=== PATIENT | female | born 1975 | race Caucasian/White ===

== ENCOUNTER 2018-06-08 23:10 | Emergency (ER) | payer SELFPAY ==
[~2018-06-08] VITALS: Ht 162.6 cm; Wt 69.8 kg
[2018-06-09] LABS: HEMATOCRIT 37.2 % (37.0-47.0); HEMOGLOBIN 12.6 g/dl (12.0-16.0); IMMATURE GRANULOCYTES 0.5 % (0.0-5.0); MEAN CELL VOLUME 96.4 fL CALC (80.0-100.0); MEAN CORPUSCULAR HGB 32.6 pG CALC (26.0-32.0); MEAN CORPUSCULAR HGB CONC 33.9 g/L CALC (32.0-36.0); NEUT# 9.81 thou/uL (2.00-7.15); RED BLOOD COUNT 3.86 mill/uL (4.20-5.60); RED CELL DISTRI WIDTH 14.3 % (11.5-15.5)
[2018-06-09 00:09] LABS: URINE BLOOD DIPSTICK MODERATE (NEGATIVE); URINE COLOR YELLOW; URINE GLUCOSE - DIPSTICK NEGATIVE (NEGATIVE); URINE KETONE >=80 mg/dL (NEGATIVE); URINE LEUK ESTERASE NEGATIVE (NEGATIVE); URINE NITRITE - DIPSTICK NEGATIVE (Negative); URINE PH 5.5 (4.5-8.0); URINE PROTEIN - DIPSTICK 30 mg/dL (NEG-TRACE); URINE SPECIFIC GRAVITY >=1.030; URINE UROBILINOGEN - DIPSTICK 0.2 E.U./dL (0.2)
[2018-06-09 00:12] LABS: URINE BILIRUBIN - DIPSTICK NEGATIVE (NEGATIVE); URINE CLARITY CLEAR
[2018-06-09 00:13] LABS: INFLUENZA A NONE DETECTED (NONE DETECT); INFLUENZA B NONE DETECTED (NONE DETECT)
[2018-06-09 00:17] LABS: ALBUMIN 4.2 g/dL (3.2-5.0); ALKALINE PHOSPHATASE 97 u/l (38-126); AMYLASE 47 u/l (30-110); ANION GAP 15 (6-22 (CALC)); BILIRUBIN, TOTAL 0.5 mg/dL (0.0-1.4); BUN 8 mg/dL (7-17); BUN/CREATININE RATIO 12 (12-20 (CALC)); CARBON DIOXIDE 25 mmol/l (22-30); CHLORIDE 102 mmol/l (95-108); CREATININE 0.7 mg/dL (0.5-1.0); GFR > 60 ML/MIN (>=60 (CALC)); GFR FOR AFR.AMER. > 60 ML/MIN (>=60 (CALC)); LIPASE 139 u/l (23-300); POTASSIUM 3.2 mmol/l (3.5-5.1); SGOT/AST 19 u/l (14-36); SGPT/ALT 27 u/l (9-52); SODIUM 138 mmol/l (137-146)
[2018-06-09 00:18] LABS: URINE SQUAMOUS EPITHELIAL CELL FEW EPI/hpf (0-FEW)
[2018-06-09 00:19] LABS: URINE BACTERIA MODERATE hpf; URINE HYALINE CAST RARE lpf (NONE-RARE); URINE MUCUS MODERATE hpf (NONE-FEW)
[2018-06-09] MEDS ORDERED: CIPROFLOXACN500 MG PO (02:12)
[2018-06-09] MEDS ORDERED: IMODIUM2 MG PO (02:14)
[2018-06-09 02:50] VITALS: BP 126/66
== END 2018-06-09 02:54 | disposition home or self-care (01) | DRG 392 ==
LOC: ED 23:10
PROVIDERS: Emergency Medicine
DX: R19.7 Diarrhea, unspecified (principal); R11.2 Nausea with vomiting, unspecified; N39.0 Urinary tract infection, site not specified
CPT/HCPCS: S0164

== ENCOUNTER 2020-08-10 19:36 | Observation (INO) | payer SELFPAY ==
[~2020-08-10] VITALS: Ht 167.6 cm; Wt 84.3 kg
[~2020-08-10 19:36] MED LIST: CIPROFLOXACN500 MG PO; IMODIUM2 MG PO
--- NOTE | 2020-08-10 19:42 | NUR ---
PT TO CT WITH NURSE PRIOR TO COMPLETION OF TRIAGE.
[2020-08-10] MEDS ORDERED: GABAPENTIN100 MG PO (20:11)
--- NOTE | 2020-08-10 20:12 | NUR ---
LAB AT BEDSIDE TO DRAW BLOOD. XRAY AT BEDSIDE.
[2020-08-10 20:18] LABS: HEMATOCRIT 36.6 % (37.0-47.0); HEMOGLOBIN 11.8 g/dl (12.0-16.0); IMMATURE GRANULOCYTES 0.4 % (0.0-5.0); MEAN CORPUSCULAR HGB 32.2 pG CALC (26.0-32.0); MEAN CORPUSCULAR HGB CONC 32.2 g/dL CAL (32.0-36.0); NEUT# 12.95 thou/uL (2.00-7.15); RED BLOOD COUNT 3.66 mill/uL (4.20-5.60); RED CELL DISTRI WIDTH 15.8 % (11.5-15.5)
--- NOTE | 2020-08-10 20:30 | NUR ---
STRAIGHT CATH PERFORMED WITH STERILE TECHNIQUE, URINE SAMPLE OBTAINED. PT TOLERATED WELL.
[2020-08-10 20:35] LABS: ALKALINE PHOSPHATASE 86 u/l (38-126); ANION GAP 18 (6-22 (CALC)); BUN 11 mg/dL (7-17); BUN/CREATININE RATIO 13 (12-20 (CALC)); CARBON DIOXIDE 20 mmol/l (22-30); CHLORIDE 102 mmol/l (95-108); CREATININE 0.8 mg/dL (0.5-1.0); ETHYL ALCOHOL 37 mg/dl (0-30); GFR > 60 ML/MIN (>=60 (CALC)); GFR FOR AFR.AMER. > 60 ML/MIN (>=60 (CALC)); POTASSIUM 3.3 mmol/l (3.5-5.1); SODIUM 136 mmol/l (137-146); TOTAL PROTEIN 6.8 g/dL (6.3-8.2)
[2020-08-10 20:37] LABS: BILIRUBIN, TOTAL 0.2 mg/dL (0.0-1.4); SGOT/AST 82 u/l (14-36)
[2020-08-10 20:46] LABS: MYOGLOBIN 27 ng/mL (0 - 62)
[2020-08-10 21:29] LABS: URINE BILIRUBIN - DIPSTICK NEGATIVE (NEGATIVE); URINE BLOOD DIPSTICK NEGATIVE (NEGATIVE); URINE COLOR YELLOW; URINE GLUCOSE - DIPSTICK 250 mg/dL (NEGATIVE); URINE KETONE NEGATIVE (NEGATIVE); URINE LEUK ESTERASE NEGATIVE (NEGATIVE); URINE NITRITE - DIPSTICK NEGATIVE (Negative); URINE PROTEIN - DIPSTICK TRACE mg/dL (NEG-TRACE); URINE SPECIFIC GRAVITY >=1.030; URINE UROBILINOGEN - DIPSTICK 0.2 E.U./dL (0.2)
--- NOTE | 2020-08-10 22:17 | NUR ---
PT ASSISTED ON TO BEDPAN
--- NOTE | 2020-08-10 22:29 | NUR ---
PT UNABLE TO URINATE ON BEDPAN. ASSISTED TO BSC--APPX 500 CC OF CLEAR YELLOW URINE PRODUCED. PLACED BACK INTO BED. SPECIALIST WOUND CARE IN PLACE. CALL LIGHT GIVEN.
--- NOTE | 2020-08-10 22:52 | NUR ---
IV MNT FLUID INITATED TO LEFT AC SITE. INFUSING WITHOUT DIFFICULTY. IO REMOVED FROM LEFT TIBIA. PT TOLERATED REMOVAL WELL---DRESSING PLACED TO SITE.
--- NOTE | 2020-08-10 23:02 | NUR ---
REPORT TO ELOINA NURSE/MED-SURG.
--- NOTE | 2020-08-10 23:15 | NUR ---
PT RECEIVED FROM ED TO ROOM 272. ARRIVES VIA STRETCHER ACCOMPANIED BY MYRA WALL. PT AMBULATORY TO BED. GAIT STEADY AND BALANCED. ORIENTED TO UNIT, ROOM, CALL MARTINS, LIGHTS, TV. ICE WATER PROVIDED. CALL MARTINS WITHIN REACH. AGREES TO CALL PRN.
--- NOTE | 2020-08-10 23:15 | NUR ---
Admission Note Report Given to: ELOINA Transported by: Wheelchair X Stretcher Transported with: X Nurse Transporter X Patent IV O2 X Tufting Creeler Location: ICU X [facility]2 PT TRANSPORTED TO [facility] VIA STRETCHER WITH TELE IN PLACE TO RM # [id number]
[2020-08-10 23:20] VITALS: BP 134/83
--- NOTE | 2020-08-10 23:25 | NUR ---
ASSESSMENT AND VITALS COMPLETED AT THIS TIME. RESPIRATIONS ARE STRONG, PT NO SIGNS OF DISTRESS, O2 SAT 99% ON RA. HEART RHYTHM IS NORMAL WITH TEELE IN PLACE. BOWEL SOUNDS ARE ACTIVE IN ALL QUADRANTS, LAST REPORTED BM 08/10/20. RADIAL AND PEDAL PULSES ARE STRONG WITH NORMAL CAPILLARY REFILL. IV SITE IS A 22G IN THE RAC IS PATENT AND APPEARS HEALTHY LOOKING. PT PRESENTS WITH MULTIPLE WOUNDS FROM A FALL DURING AN UNWITNESSED SEIZURE. PT HAS A CONTUSION ABOVE THE RIGHT EYE WITH A SKIN TEAR. PT HAS A PUNCTURE WOULD BELOW THE LEFT KNEE FROM AN EMS PLACEMENT OF AN INTRAOSSEOUS INFUSION. PT SCRATCHES/ABRASIONS ON HER ABDOMEN WHEN SHE FELL ON THE COUNTER IN HER KITCHEN. THE EMERGENCY DEPT REPORTS TO HER RIGHT FOREARM AND PALM OF HER RIGHT HAND. MATHEW WERE TREATED WITH NEOSPORIN AND WRAPPED WITH GAUZE. PT STATES THAT SHE IS IN PAIN BUT WOULD LIKE TO REMAIN MEDICATION FREE AT THIS TIME. NO ADDITIONAL NEEDS AT THIS TIME. ALL SAFETY PRECAUTIONS ARE IN PLACE WITH CALL LIGHT IN REACH. WILL CONTINUE TO MONITOR.
[2020-08-11] VITALS (7 sets, daily range): BP systolic 109–145; BP diastolic 54–93
--- NOTE | 2020-08-11 00:45 | NUR ---
PT LAYING IN BED WITH EYES CLOSED, APPEARS TO BE SLEEPING, IN NO APPARENT DISTRESS. RESPIRATIONS REGULAR AND UNLABORED. ITEMS REMAIN WITHIN REACH, CALL MARTINS REMAINS WITHIN REACH. BED REMAINS LOCKED AND IN LOW POSITION WITH BEDRAILS UP X2. WILL CONTINUE TO MONITOR.
--- NOTE | 2020-08-11 04:01 | NUR ---
PT RESTING IN BED, NO SIGNS OF DISTRESS NOTED, RESP EVEN AND UNLABORED. PT VOICES NO NEEDS OR COMPLAINTS AT THIS TIME. CALL LIGHT IN REACH,CONTINUE TO MONITOR.
[2020-08-11 04:41] LABS: HEMATOCRIT 36.4 % (37.0-47.0); HEMOGLOBIN 11.5 g/dl (12.0-16.0); IMMATURE GRANULOCYTES 0.3 % (0.0-5.0); MEAN CELL VOLUME 101.4 fL CALC (80.0-100.0); MEAN CORPUSCULAR HGB CONC 31.6 g/dL CAL (32.0-36.0); NEUT# 8.39 thou/uL (2.00-7.15); RED BLOOD COUNT 3.59 mill/uL (4.20-5.60); RED CELL DISTRI WIDTH 16.1 % (11.5-15.5)
[2020-08-11 05:03] LABS: BUN 8 mg/dL (7-17); BUN/CREATININE RATIO 14 (12-20 (CALC)); CARBON DIOXIDE 23 mmol/l (22-30); CHLORIDE 107 mmol/l (95-108); CREATININE 0.6 mg/dL (0.5-1.0); GFR > 60 ML/MIN (>=60 (CALC)); GFR FOR AFR.AMER. > 60 ML/MIN (>=60 (CALC)); SODIUM 136 mmol/l (137-146)
[2020-08-11 05:04] LABS: ANION GAP 11 (6-22 (CALC)); POTASSIUM 4.6 mmol/l (3.5-5.1)
--- NOTE | 2020-08-11 07:00 | NUR ---
SHIFT CHANGE REPORT, PT AWAKE AND ORIENTED RESTING IN BED, C/O PAIN TO RIGHT ARMAT THIS TIME, ICE APPLIED AND ARM ELEVATED, TO ADDRESS CONCERN WITH MD, CALL MARTINS IN REACH.
--- NOTE | 2020-08-11 12:00 | NUR ---
MEDICAL TEAM ROUNDED, ORDERS WRITTEN AND PAIN CONCERNS ADDRESSED, SPOUSE AT BEDSIDE.
--- NOTE | 2020-08-11 13:22 | NUR ---
DRESSING TO RIGHT ARM SATURATED AND REMOVED, NEW DRESSING OF TELFA APPLLIED AND SECURED WITH KELIX
--- NOTE | 2020-08-11 16:20 | NUR ---
RELAXING IN BED WATCHING TV, PAIN CONTROLLED WITH ANALGESICS, IVF INFUSING, CALL MARTINS IN REACH.
--- NOTE | 2020-08-11 20:04 | NUR ---
ASSESSMENT AND VITALS COMPLETED AT THIS TIME. RESPIRATIONS ARE EVEN AND UNLABORED AT REST, NO SIGNS OF DISTRESS, O2 SAT 98% ON RA. HEART RHYTHM WAS HEARD NORMAL,;SR ON TELEMENTRY. BOWEL SOUNDS ARE ACTIVE IN ALL QUADRANTS, LAST REPORTED BM 08/11/20. RADIAL AND PEDAL PULSES ARE STRONG WITH NORMAL CAPILLARY REFILL. PT IS USING THE BSC WITH 1 ASSIST. PT DENIES ANY PAIN OR ADDITIONAL NEEDS AT THIS TIME. ALL SAFETY PRECAUTIONS ARE IN PLACE WITH CALL LIGHT IN REACH. WILL CONTINUE TO MONITOR.
--- NOTE | 2020-08-12 01:33 | NUR ---
P/T C/O OF 07/21 PAIN. PRN PAIN MEDICATION GIVEN.
--- NOTE | 2020-08-12 01:53 | NUR ---
PT LAYING IN BED WITH EYES CLOSED, APPEARS TO BE SLEEPING, APPEARS COMFORTABLE AND IN NO DISTRESS. RESPIRATIONS REGULAR AND UNLABORED. ITEMS REMAIN WITHIN REACH, CALL MARTINS REMAINS WITHIN REACH. BED REMAINS LOCKED AND IN LOW POSITION WITH BEDRAILS UP X2. WILL CONTINUE TO MONITOR.
--- NOTE | 2020-08-12 04:04 | NUR ---
PT RESTING IN BED, PT STATES PAIN IS CONTROLLED. NO SIGNS OF DISTRESS NOTED, RESP EVEN AND UNLABORED. PT VOICES NO NEEDS OR COMPLAINTS AT THIS TIME. CALL LIGHT IN REACH, CONTINUE TO MONITOR.
[2020-08-12 04:05] VITALS: BP 127/73
[2020-08-12 07:42] VITALS: BP 128/86
--- NOTE | 2020-08-12 07:42 | NUR ---
RECEIEVED REPORT FROM MAE AU. PT SITTING IN RECLYINER UPON ENTERING ROOM. INTRODUCED SELF TO PT AND DISCUSSED POC. PT IS A/O X3 AND ABLE TO STATE NEEDS. ASSESSMENT AND VITALS COMPLETED. BP 128/86, HR 78, O2 100% ON ROOM AIR. RESPIRATIONS ARE EVEN AND UNLABORED WITH NO SIGNS OF DISTRESS NOTED. LUNG SOUNDS ARE CLEAR. HEART RHYTHM IS NORMAL WITH TELE IN PLACE. BOWEL SOUNDS ARE ACTIVE IN ALL QUADRANTS, LAST REPORTED BM 08/12/2020. RADIAL AND PEDAL PULSES ARE STRONG WITH NORMAL CAPILALRY REFILL. #22G IN LAC RUNNING WITH IVF PER ORDER, SITE APPEARS HEALTHY AND PATENT. PT PRESENTS WITH EDEMA AND 2 MATHEW SITES TO LEFT EYE. PT STATES "ITS STILL HARD TO OPEN UP. THEY ONLY THING IM WORRIED ABOUT IS THE SCARS." DRESSING TO RIGHT ARM IS SLIGHTLY SOILED, DRESSING TO BE CHANGED. MULTIPLE SMALL ABRASIONS TO LEFT LEG, BAND AIDES APPLIED. WRITTER SUGGESTING REPLACING, PT REFUSED. PT COMPLAINS OF 7/10 PAIN IN RIGHT ARM. PT TO BE MEDICATED PER EMAR. PT DENIES ANY ADDITIONAL NEEDS AT THIS TIME. ALL SAFTEY PRECAUTIONS ARE IN PLACE WIHT CALL LIGHT IN REACH. WILL CONTINUE TO MONITOR
--- NOTE | 2020-08-12 09:09 | NUR ---
DR NOVAK AT BEDSIDE DISCUSSING POC WITH PT
--- NOTE | 2020-08-12 09:46 | NUR ---
MORPHINE ADMINISTERED FOR PAIN RESULTING IN 04/20. DRESSING TO RIGHT ARM CHANGED. NONADHESIVE PADS, KRELEX WRAP AND LENA WRAPP APPLIED. DRESSING REAMINS CDI AT THIS TIME. PT TOLERATED WELL. ALL SAFETY PRECAUTIONS ARE I PLACE WIHT CALL LIGHT IN REACH. WILL CONTINUE TO MONITOR
[2020-08-12] MEDS ORDERED: PREDNISONE10 MG PO (10:11)
[2020-08-12] MEDS ORDERED: LORTAB5 PO ×2 (10:11→12:36)
[2020-08-12 10:55] VITALS: BP 137/75
--- NOTE | 2020-08-12 11:11 | NUR ---
PT EDUCATED ON DISCHARGE INTRUCTIONS AND NEW MEDICATIONS PREDISONE AND LORTAB. PT VERBAILZED UNDERSTANDING. IV REMOVED WITH CATHATER STILL INTACT. PT TOLERATED WELL.TELE MONITORING REMOVED, ER NOTIFIED. PT AWAITING FOR SPOUSE FOR NEW CLOTHES. ALL SAFETY PRECAUTIONS ARE IN PLACE WIHT CALL LIGHT IN REACH. WILL CONTINUE TO MONITOR
--- NOTE | 2020-08-12 11:26 | NUR ---
Discharge instructions given. Patient verbalizes understanding of same. Discharged in stable condition via Wheelchair to Home with family. All belongings sent with pt. PT DISCHARGED HOME VIA WHEELCHAIR IN STABLE CONDITION ACCOMPAINED BY JAMIA PAL AND SPOUSE. PT LEFT WITH ALL DISCHARGE INSTRUCTIONS AND BELONGINGS.
== END 2020-08-12 11:26 | disposition home or self-care (01) | DRG 312 ==
LOC: ED 19:36 → ED-I 20:07 → ED 21:56 → MS2 21:57
PROVIDERS: Emergency Medicine; ADMIT Internal Medicine; ATTEND Internal Medicine
DX: R55 Syncope and collapse (principal); T20.26XA Burn of second degree of forehead and cheek, initial encounter; T23.201A Burn of second degree of right hand, unspecified site, initial encounter; T22.211A Burn of second degree of right forearm, initial encounter; T26.01XA Burn of right eyelid and periocular area, initial encounter; X11.8XXA Contact with other hot tap-water, initial encounter; R73.9 Hyperglycemia, unspecified; M06.9 Rheumatoid arthritis, unspecified; Y93.G1 Activity, food preparation and clean up; Y92.000 Kitchen of unspecified non-institutional (private) residence as the place of occurrence of the external cause; Z20.828 Contact with and (suspected) exposure to other viral communicable diseases
CPT/HCPCS: G0378; J1650

== ENCOUNTER 2020-08-27 17:11 | Emergency (ER) | payer SELFPAY ==
[~2020-08-27] VITALS: Ht 167.6 cm; Wt 90.0 kg
[~2020-08-27 17:11] MED LIST changes: +GABAPENTIN100 MG PO; +LORTAB5 PO; +PREDNISONE10 MG PO
[2020-08-27] MEDS ORDERED: KEFLEX500 MG PO (17:59)
[2020-08-27 18:00] LABS: HEMATOCRIT 34.8 % (37.0-47.0); HEMOGLOBIN 10.7 g/dl (12.0-16.0); IMMATURE GRANULOCYTES 0.6 % (0.0-5.0); MEAN CELL VOLUME 100.3 fL CALC (80.0-100.0); MEAN CORPUSCULAR HGB 30.8 pG CALC (26.0-32.0); MEAN CORPUSCULAR HGB CONC 30.7 g/dL CAL (32.0-36.0); NEUT# 15.7 thou/uL (2.00-7.15); RED BLOOD COUNT 3.47 mill/uL (4.20-5.60); RED CELL DISTRI WIDTH 15.2 % (11.5-15.5)
[2020-08-27 18:02] LABS: URINE BILIRUBIN - DIPSTICK NEGATIVE (NEGATIVE); URINE BLOOD DIPSTICK NEGATIVE (NEGATIVE); URINE COLOR YELLOW; URINE GLUCOSE - DIPSTICK 500 mg/dL (NEGATIVE); URINE KETONE NEGATIVE (NEGATIVE); URINE LEUK ESTERASE NEGATIVE (NEGATIVE); URINE NITRITE - DIPSTICK NEGATIVE (Negative); URINE PROTEIN - DIPSTICK NEGATIVE (NEG-TRACE); URINE SPECIFIC GRAVITY >=1.030; URINE UROBILINOGEN - DIPSTICK 0.2 E.U./dL (0.2)
[2020-08-27 18:15] LABS: ALBUMIN 3.7 g/dL (3.2-5.0); ALKALINE PHOSPHATASE 80 u/l (38-126); ANION GAP 14 (6-22 (CALC)); BUN 13 mg/dL (7-17); BUN/CREATININE RATIO 15 (12-20 (CALC)); CARBON DIOXIDE 24 mmol/l (22-30); CHLORIDE 102 mmol/l (95-108); CREATININE 0.9 mg/dL (0.5-1.0); ETHYL ALCOHOL 19 mg/dl (0-30); GFR > 60 ML/MIN (>=60 (CALC)); GFR FOR AFR.AMER. > 60 ML/MIN (>=60 (CALC)); MAGNESIUM 1.8 mg/dL (1.6-2.3); POTASSIUM 3.8 mmol/l (3.5-5.1); SGOT/AST 52 u/l (14-36); SODIUM 136 mmol/l (137-146); TOTAL PROTEIN 6.2 g/dL (6.3-8.2)
[2020-08-27 18:16] LABS: BILIRUBIN, TOTAL 0.1 mg/dL (0.0-1.4)
[2020-08-27 21:33] LABS: ALBUMIN 3.4 g/dL (3.2-5.0); ALKALINE PHOSPHATASE 88 u/l (38-126); ANION GAP 10 (6-22 (CALC)); BUN 13 mg/dL (7-17); BUN/CREATININE RATIO 20 (12-20 (CALC)); CARBON DIOXIDE 27 mmol/l (22-30); CHLORIDE 102 mmol/l (95-108); CREATININE 0.7 mg/dL (0.5-1.0); GFR > 60 ML/MIN (>=60 (CALC)); GFR FOR AFR.AMER. > 60 ML/MIN (>=60 (CALC)); POTASSIUM 4.1 mmol/l (3.5-5.1); SGOT/AST 41 u/l (14-36); SODIUM 135 mmol/l (137-146); TOTAL PROTEIN 5.9 g/dL (6.3-8.2)
[2020-08-27 21:40] LABS: BILIRUBIN, TOTAL 0.2 mg/dL (0.0-1.4)
[2020-08-27 21:50] VITALS: BP 135/68
== END 2020-08-27 22:00 | disposition home or self-care (01) | DRG 918 ==
LOC: ED 17:11
DX: T40.2X1A Poisoning by other opioids, accidental (unintentional), initial encounter (principal); E11.9 Type 2 diabetes mellitus without complications; M06.9 Rheumatoid arthritis, unspecified

== ENCOUNTER 2021-03-11 13:45 | Emergency (ER) | payer SELFPAY ==
[~2021-03-11] VITALS: Ht 167.6 cm; Wt 85.0 kg
[~2021-03-11 13:45] MED LIST changes: +KEFLEX500 MG PO
[2021-03-11 14:54] LABS: HEMATOCRIT 35.8 % (37.0-47.0); HEMOGLOBIN 11.3 g/dl (12.0-16.0); IMMATURE GRANULOCYTES 0.3 % (0.0-5.0); MEAN CORPUSCULAR HGB 29.7 pG CALC (26.0-32.0); MEAN CORPUSCULAR HGB CONC 31.6 g/dL CAL (32.0-36.0); NEUT# 4.87 thou/uL (2.00-7.15); RED BLOOD COUNT 3.81 mill/uL (4.20-5.60)
[2021-03-11 15:22] LABS: URINE BILIRUBIN - DIPSTICK NEGATIVE (NEGATIVE); URINE BLOOD DIPSTICK NEGATIVE (NEGATIVE); URINE COLOR YELLOW; URINE GLUCOSE - DIPSTICK 100 mg/dL (NEGATIVE); URINE KETONE NEGATIVE (NEGATIVE); URINE LEUK ESTERASE NEGATIVE (NEGATIVE); URINE PROTEIN - DIPSTICK NEGATIVE (NEG-TRACE); URINE UROBILINOGEN - DIPSTICK 0.2 E.U./dL (0.2)
[2021-03-11 15:25] LABS: URINE NITRITE - DIPSTICK NEGATIVE (Negative)
[2021-03-11 15:31] LABS: ALBUMIN 3.5 g/dL (3.2-5.0); ALKALINE PHOSPHATASE 83 u/l (38-126); ANION GAP 9 (6-22 (CALC)); BUN 5 mg/dL (7-17); BUN/CREATININE RATIO 9 (12-20 (CALC)); CARBON DIOXIDE 26 mmol/l (22-30); CHLORIDE 104 mmol/l (95-108); CREATININE 0.6 mg/dL (0.5-1.0); ETHYL ALCOHOL 0 mg/dl (0-30); GFR > 60 ML/MIN (>=60 (CALC)); GFR FOR AFR.AMER. > 60 ML/MIN (>=60 (CALC)); MAGNESIUM 1.7 mg/dL (1.6-2.3); POTASSIUM 3.7 mmol/l (3.5-5.1); SGOT/AST 29 u/l (14-36); SODIUM 136 mmol/l (137-146); TOTAL PROTEIN 6.2 g/dL (6.3-8.2)
[2021-03-11 15:37] LABS: BILIRUBIN, TOTAL 0.1 mg/dL (0.0-1.4)
[2021-03-11 17:24] VITALS: BP 115/92
== END 2021-03-11 17:33 | disposition home or self-care (01) | DRG 918 ==
LOC: ED 13:45
PROVIDERS: Emergency Medicine
DX: T42.4X1A Poisoning by benzodiazepines, accidental (unintentional), initial encounter (principal); E11.9 Type 2 diabetes mellitus without complications; M06.9 Rheumatoid arthritis, unspecified

== ENCOUNTER 2021-10-23 08:18 | Emergency (ER) | payer SELFPAY ==
[~2021-10-23] VITALS: Ht 167.6 cm; Wt 68.0 kg
[2021-10-23 09:30] LABS: URINE BILIRUBIN - DIPSTICK NEGATIVE (NEGATIVE); URINE BLOOD DIPSTICK NEGATIVE (NEGATIVE); URINE COLOR YELLOW; URINE GLUCOSE - DIPSTICK NEGATIVE (NEGATIVE); URINE KETONE NEGATIVE (NEGATIVE); URINE LEUK ESTERASE NEGATIVE (NEGATIVE); URINE PROTEIN - DIPSTICK NEGATIVE (NEG-TRACE); URINE UROBILINOGEN - DIPSTICK 0.2 E.U./dL (0.2)
[2021-10-23 09:32] LABS: HEMATOCRIT 38.6 % (37.0-47.0); HEMOGLOBIN 13.1 g/dl (12.0-16.0); IMMATURE GRANULOCYTES 0.1 % (0.0-5.0); MEAN CELL VOLUME 96.7 fL CALC (80.0-100.0); MEAN CORPUSCULAR HGB 32.8 pG CALC (26.0-32.0); MEAN CORPUSCULAR HGB CONC 33.9 g/dL CAL (32.0-36.0); NEUT# 6.95 thou/uL (2.00-7.15); RED BLOOD COUNT 3.99 mill/uL (4.20-5.60); RED CELL DISTRI WIDTH 17.1 % (11.5-15.5)
[2021-10-23 09:32] LABS: URINE NITRITE - DIPSTICK NEGATIVE (Negative)
[2021-10-23 09:48] LABS: ALKALINE PHOSPHATASE 117 u/l (38-126); ANION GAP 14 (6-22 (CALC)); BUN 5 mg/dL (7-17); BUN/CREATININE RATIO 8 (12-20 (CALC)); CARBON DIOXIDE 28 mmol/l (22-30); CHLORIDE 100 mmol/l (95-108); CREATININE 0.7 mg/dL (0.5-1.0); GFR > 60 ML/MIN (>=60 (CALC)); GFR FOR AFR.AMER. > 60 ML/MIN (>=60 (CALC)); POTASSIUM 4.3 mmol/l (3.5-5.1); SODIUM 137 mmol/l (137-146)
[2021-10-23 09:54] LABS: ALBUMIN 4.5 g/dL (3.2-5.0); BILIRUBIN, TOTAL 0.8 mg/dL (0.0-1.4); SGOT/AST 101 u/l (14-36); TOTAL PROTEIN 7.8 g/dL (6.3-8.2)
[2021-10-23 10:00] LABS: MYOGLOBIN 27 ng/mL (0 - 62)
[2021-10-23] MEDS ORDERED: ATIVAN1 M1 PO (10:19)
[2021-10-23] MEDS ORDERED: ONDANSETRON4 MG PO (10:19)
[2021-10-23 10:22] VITALS: BP 146/68
== END 2021-10-23 10:40 | disposition home or self-care (01) | DRG 897 ==
LOC: ED 08:18
PROVIDERS: Emergency Medicine
DX: F19.139 Other psychoactive substance abuse with withdrawal, unspecified (principal); E11.9 Type 2 diabetes mellitus without complications; M06.9 Rheumatoid arthritis, unspecified

== ENCOUNTER 2022-01-09 18:48 | Emergency (ER) | payer SELFPAY ==
[~2022-01-09] VITALS: Ht 167.6 cm; Wt 70.0 kg
[~2022-01-09 18:48] MED LIST changes: +ATIVAN1 M1 PO; +ONDANSETRON4 MG PO
[2022-01-09 19:39] VITALS: BP 137/104
[2022-01-09 19:40] VITALS: BP 149/100
[2022-01-09 20:00] VITALS: BP 141/90
[2022-01-09 20:30] VITALS: BP 134/89; BP 141/90
== END 2022-01-09 20:37 | disposition home or self-care (01) | DRG 125 ==
LOC: ED 18:48
PROC: 0HQ1XZZ Repair Face Skin, External Approach (ICD-10-PCS; principal; 2022-01-09)
DX: S01.112A Laceration without foreign body of left eyelid and periocular area, initial encounter (principal); E11.9 Type 2 diabetes mellitus without complications; M06.9 Rheumatoid arthritis, unspecified; W22.8XXA Striking against or struck by other objects, initial encounter; Y93.I9 Activity, other involving external motion

== ENCOUNTER 2024-05-01 15:01 | Emergency (ER) | payer OTHER ==
[~2024-05-01] VITALS: Ht 167.6 cm; Wt 99.7 kg
[2024-05-01] VITALS (9 sets, daily range): BP systolic 120–143; BP diastolic 73–88
[2024-05-01] MEDS ORDERED: SODIUM CHLORIDE 0.9% 1,000 ML IV ONE (15:10)
[2024-05-01] MEDS ORDERED: ONDANSETRON HCl 4 MG/2 ML SDV ONE (15:19)
[2024-05-01] MEDS ORDERED: METOCLOPRAMIDE HCL 10 MG/2 ML SDV IV ONE (15:25)
[2024-05-01] MEDS ORDERED: DiphenhydrAMINE HCL 50 MG/ML SDV IV ONE (15:25)
[2024-05-01] MEDS ORDERED: KETOROLAC TROMETHAMINE 30 MG/ML SDV IV ONE (15:25)
[2024-05-01 15:55] LABS: HEMATOCRIT 35.2 % (37.0-47.0); HEMOGLOBIN 11.3 g/dl (12.0-16.0); MEAN CELL VOLUME 92.1 fL CALC (80.0-100.0); MEAN CORPUSCULAR HGB 29.6 pG CALC (26.0-32.0); MEAN CORPUSCULAR HGB CONC 32.1 g/dL CAL (32.0-36.0); RED BLOOD COUNT 3.82 mill/uL (4.20-5.60); RED CELL DISTRI WIDTH 20.2 % (11.5-15.5)
[2024-05-01 16:08] LABS: ALBUMIN 4.2 g/dL (3.2-5.0); BILIRUBIN, TOTAL 1.1 mg/dL (0.02-1.3); CREATININE 0.8 mg/dL (0.5-1.0); TOTAL PROTEIN 7.3 g/dL (6.3-8.2)
[2024-05-01 16:09] LABS: POTASSIUM 3.3 mmol/l (3.5-5.1)
[2024-05-01 16:26] LABS: IMMATURE GRANULOCYTES 0.3 % (0.0-5.0)
[2024-05-01 16:38] LABS: MANUAL DIFFERENTIAL YES
[2024-05-01 16:45] LABS: BAND 1 % (0-8)
[2024-05-01 18:32] LABS: PLATELET COUNT 31 thou/uL (130-400)
[2024-05-01] MEDS ORDERED: DEXAMETHASON4 MG PO (18:48)
[2024-05-01] MEDS ORDERED: ZOFRAN4 MG/TAB PO (18:48)
[2024-05-01] MEDS ORDERED: DEXAMETHASONE 2 MG/TAB TAB PO ONE (18:50)
[2024-05-01] MEDS ORDERED: DEXAMETHASONE SOD. PHOSPHATE 10 MG/ML VIAL IV ONE (19:10)
== END 2024-05-01 19:17 | disposition home or self-care (01) | DRG 103 ==
LOC: ED 15:01
PROVIDERS: Nurse Practitioner Family
DX: R51.9 Headache, unspecified (principal); D69.6 Thrombocytopenia, unspecified; E11.9 Type 2 diabetes mellitus without complications; M06.9 Rheumatoid arthritis, unspecified; Z20.822 Contact with and (suspected) exposure to COVID-19

== ENCOUNTER 2024-09-04 13:54 | Emergency (ER) | payer OTHER ==
[~2024-09-04] VITALS: Ht 167.6 cm; Wt 900.7 kg
[2024-09-04] VITALS (18 sets, daily range): BP systolic 105–137; BP diastolic 60–100
[~2024-09-04 13:54] MED LIST changes: +DEXAMETHASON4 MG PO; +ZOFRAN4 MG/TAB PO
[2024-09-04] MEDS ORDERED: SODIUM CHLORIDE 0.9% 1,000 ML IV ONE (14:15)
[2024-09-04] MEDS ORDERED: ONDANSETRON HCl 4 MG/2 ML SDV IV ONE ×2 (14:15→16:40)
[2024-09-04 14:27] LABS: HEMOGLOBIN 9.4 g/dl (12.0-16.0); IMMATURE GRANULOCYTES 0.6 % (0.0-5.0); MEAN CORPUSCULAR HGB 41.6 pG CALC (26.0-32.0); MEAN CORPUSCULAR HGB CONC 33.1 g/dL CAL (32.0-36.0); RED BLOOD COUNT 2.26 mill/uL (4.20-5.60); RED CELL DISTRI WIDTH 23.6 % (11.5-15.5)
[2024-09-04] MEDS ORDERED: MORPHINE SULFATE 4 MG/ML VIAL IV ONE ×2 (14:30→16:40)
[2024-09-04 14:37] LABS: ALBUMIN 3.5 g/dL (3.2-5.0); ANION GAP 18 (6-22 (CALC)); CARBON DIOXIDE 25 mmol/l (22-30); CHLORIDE 95 mmol/l (95-108); CREATININE 0.6 mg/dL (0.5-1.0); ESTIMATED GFR 111 ML/MIN (>=90 (CALC)); LIPASE 71 u/l (23-300); POTASSIUM 3.7 mmol/l (3.5-5.1); SODIUM 135 mmol/l (137-146); TOTAL PROTEIN 6.6 g/dL (6.3-8.2)
[2024-09-04 14:49] LABS: ALKALINE PHOSPHATASE 264 u/l (38-126); BILIRUBIN, TOTAL 2.8 mg/dL (0.02-1.3); BUN < 2 mg/dL (7-17); BUN/CREATININE RATIO 3 (12-20 (CALC)); SGOT/AST 302 u/l (14-36)
[2024-09-04] MEDS ORDERED: ISOVUE-300 (Iopamidol) 100 ML SDV IV ONE (14:55)
[2024-09-04 15:03] LABS: HEMATOCRIT 28.4 % (37.0-47.0); MEAN CELL VOLUME 125.7 fL CALC (80.0-100.0); PLATELET COUNT 115 thou/uL (130-400)
[2024-09-04 15:04] LABS: MANUAL DIFFERENTIAL YES
[2024-09-04 15:09] LABS: NUCLEATED RED BLOOD CELL 1 /100WBC (0-1); POLYCHROMASIA FEW
[2024-09-04 15:11] LABS: ANISOCYTOSIS FEW; SPHEROCYTE FEW
[2024-09-04 15:12] LABS: PLATELET ESTIMATE CLUMPED
[2024-09-04 15:48] LABS: URINE BLOOD DIPSTICK Negative (NEGATIVE); URINE GLUCOSE - DIPSTICK Negative (NEGATIVE); URINE KETONE 15 mg/dL (NEGATIVE); URINE LEUK ESTERASE Negative (NEGATIVE); URINE PH 5.5 (4.5-8.0); URINE PROTEIN - DIPSTICK 30 mg/dL (NEG-TRACE); URINE SPECIFIC GRAVITY 1.025
[2024-09-04 15:50] LABS: URINE COLOR Amber; URINE NITRITE - DIPSTICK Positive (Negative)
[2024-09-04 15:57] LABS: URINE BACTERIA MANY hpf; URINE MUCUS FEW hpf (NONE-FEW); URINE RBC 0-2 RBC/hpf (0-5); URINE SQUAMOUS EPITHELIAL CELL FEW EPI/hpf (0-FEW)
[2024-09-04 15:58] LABS: URINE HYALINE CAST FEW lpf (NONE-RARE)
[2024-09-04] MEDS ORDERED: Levofloxacin 750 mg Premix 150 ML IV ONE (16:40)
[2024-09-04] MEDS ORDERED: IBUPROFEN600 MG PO (16:41)
[2024-09-04] MEDS ORDERED: LEVOFLOXACIN750 MG PO (16:41)
[2024-09-06] MEDS ORDERED: OMNICEF300 MG PO (10:21)
== END 2024-09-04 18:30 | disposition home or self-care (01) ==
LOC: ED 13:54
PROVIDERS: Family Medicine
DX: N39.0 Urinary tract infection, site not specified (principal); B96.20 Unspecified Escherichia coli [E. coli] as the cause of diseases classified elsewhere; E11.9 Type 2 diabetes mellitus without complications; M06.9 Rheumatoid arthritis, unspecified; D69.6 Thrombocytopenia, unspecified
CPT/HCPCS: Q9967

== ENCOUNTER 2024-09-25 14:17 | Emergency (ER) | payer OTHER ==
[2024-09-25] VITALS (17 sets, daily range): BP systolic 83–119; BP diastolic 36–77
[~2024-09-25] VITALS: Ht 167.6 cm; Wt 79.0 kg
[~2024-09-25 14:17] MED LIST changes: +IBUPROFEN600 MG PO; +LEVOFLOXACIN750 MG PO; +OMNICEF300 MG PO
[2024-09-25 14:56] LABS: IMMATURE GRANULOCYTES 3.3 % (0.0-5.0); MEAN CORPUSCULAR HGB 43.2 pG CALC (26.0-32.0); MEAN CORPUSCULAR HGB CONC 31.5 g/dL CAL (32.0-36.0); RED BLOOD COUNT 1.48 mill/uL (4.20-5.60); RED CELL DISTRI WIDTH 19.6 % (11.5-15.5)
[2024-09-25 15:01] LABS: HEMATOCRIT 20.3 % (37.0-47.0); HEMOGLOBIN 6.4 g/dl (12.0-16.0); MEAN CELL VOLUME 137.2 fL CALC (80.0-100.0)
[2024-09-25 15:02] LABS: MANUAL DIFFERENTIAL YES
[2024-09-25] MEDS ORDERED: SODIUM CHLORIDE 0.9% 250 ML IV ONE (15:05)
[2024-09-25 15:08] LABS: ALBUMIN 2.8 g/dL (3.2-5.0); CREATININE 1.2 mg/dL (0.5-1.0); TOTAL PROTEIN 5.8 g/dL (6.3-8.2)
[2024-09-25 15:10] LABS: BILIRUBIN, TOTAL 16.4 mg/dL (0.02-1.3); POTASSIUM 4.5 mmol/l (3.5-5.1)
[2024-09-25] MEDS ORDERED: SODIUM CHLORIDE 0.9% 1,000 ML IV ONE ×3 (15:10→18:20)
[2024-09-25 15:23] LABS: BAND 6 % (0-8)
[2024-09-25 15:24] LABS: ANISOCYTOSIS MODERATE; NUCLEATED RED BLOOD CELL 1 /100WBC (0-1); POIKILOCYTOSIS FEW; POLYCHROMASIA FEW
[2024-09-25] MEDS ORDERED: PIPERACILLIN Sodium-Tazobactam 3.375 GM in SODIUM CHLORIDE 0.9% 100 ML IV ONE (15:30)
[2024-09-25 15:39] LABS: PLATELET COUNT 120 thou/uL (130-400); PLATELET ESTIMATE CLUMPED
[2024-09-25] MEDS ORDERED: Pantoprazole Sodium 40 MG VIAL (Protonix) IV ONE (17:55)
[2024-09-25] MEDS ORDERED: NOREPINEPHRINE BITARTRATE 4 MG in DEXTROSE 5% 250 ML IV ONE (18:20)
[2024-09-25] MEDS ORDERED: SODIUM CHLORIDE 0.9% 250 ML IV PRN (18:20)
== END 2024-09-25 19:00 | disposition short-term general hospital (02) | DRG 871 ==
LOC: ED 14:17
PROVIDERS: Family Medicine
PROC: 02HV33Z Insertion of Infusion Device into Superior Vena Cava, Percutaneous Approach (ICD-10-PCS; principal; 2024-09-25)
PROC: 30243N1 Transfusion of Nonautologous Red Blood Cells into Central Vein, Percutaneous Approach (ICD-10-PCS; 2024-09-25)
DX: A41.9 Sepsis, unspecified organism (principal); R65.21 Severe sepsis with septic shock; E87.1 Hypo-osmolality and hyponatremia; E80.6 Other disorders of bilirubin metabolism; D64.9 Anemia, unspecified; R74.01 Elevation of levels of liver transaminase levels; I95.9 Hypotension, unspecified; E11.9 Type 2 diabetes mellitus without complications; M06.9 Rheumatoid arthritis, unspecified
CPT/HCPCS: J2470; J2543; P9016; Q9967